=== PATIENT | female | born 1950 | race Caucasian/White ===

== ENCOUNTER 2017-05-22 15:30 | Emergency (ER) | payer MEDICARE, OTHER ==
[2017-05-22] MEDS ORDERED: Acetaminophen/HYDROcodone 325-5 MG Tab PO ONE ×2 (15:54→18:52)
[2017-05-22] MEDS ORDERED: HYDROmorphone 2 MG/ML SDV IM ONE (17:37)
[2017-05-22] MEDS ORDERED: HYDROmorphone 2 MG/ML SDV IVPUSH ONE (17:48)
[2017-05-22 20:20] VITALS: BP 168/69
--- NOTE | 2017-05-25 12:10 | CR ---
INDICATION: Inversion sprain, but only pain left forefoot. Left 2nd, 3rd, and 4th metatarsal pain. LEFT FOOT: Three views of the left foot revealed comminuted fractures of the distal shaft extending into the metaphysis of the 2nd metatarsal and 3rd metatarsal with a more distal fracture at the 4th metatarsal involving the entire distal metaphysis of the 4th metatarsal. Medial angulation is most severe at the 4th metatarsal, but is present to a mild degree at the 3rd metatarsal. No significant angulation is seen at the 2nd metatarsal. Offset of the distal fracture fragments is noted at all fracture sites, approximately 2 mm at the 2nd, 1-2 mm at the 3rd, and 3 mm lateral offset at the 4th fracture site. Plantar and posterior calcaneal spurs are also noted. IMPRESSION: Fractures with deformity at the 2nd through 4th metatarsals. MTDD
--- NOTE | 2017-05-26 11:45 | ER ---
DATE SEEN: 05/22/2017 HISTORY OF PRESENT ILLNESS: The patient was stepping off a bleacher, at an athletic event and turned her left ankle, has moderate pain in left forefoot. She has marked pain with attempt to walk on it. There is marked swelling. PAST MEDICAL HISTORY: Depression, mild dementia, hypertension, elevated cholesterol, hysterectomy, and osteopenia. Previous documented bone density DEXA scan on October 2016 demonstrated T-scores of -1.1 and -2.2 on several bone evaluations. PREVIOUS SURGERY: Left knee surgery. REVIEW OF SYSTEMS: HEENT: Negative. CARDIORESPIRATORY: Negative. GASTROINTESTINAL: No GI bleed, blood in the stool, black tarry stool, or change of bowels. GENITOURINARY: Negative. MUSCULOSKELETAL: Decreased strength in right leg. Documented osteopenia, October 2016 DEXA scan bone density testing. The patient currently on vitamin D and calcium. PHYSICAL EXAMINATION: VITAL SIGNS: Blood pressure 165/66, heart rate 68, respirations 18, oxygen saturation 98%. GENERAL: Alert woman, in mild discomfort. HEENT: PERRLA intact. Pharynx without abnormality. LUNGS: Clear to auscultation without wheezes, rales, rhonchi. HEART: S1, S2. No murmur. Regular rate and rhythm. ABDOMEN: Soft. No guarding. No abdominal discomfort. EXTREMITIES: Left knee old previous scar healed. Right knee without abnormality No effusion on palpation; femoral popliteal and dorsalis pedis intact bilaterally. No clubbing of the toes. Right ankle had mild tenderness on the lateral calcaneal tibial ligaments. Right metatarsals 2, 3, 4 are exquisitely tender to palpation. Moderate swelling to the dorsum of the foot. Plantar surface less swelling. Sensation intact. Capillary refill of the toes is intact. DIAGNOSTIC STUDIES: X-ray reveals comminuted 2, 3, 4 right distal metatarsal fractures, minimally displaced. ASSESSMENT: Right 2, 3, 4 metatarsal comminuted fracture. Status discussed with Dr. Lorenzo. It took some time (1 to 1 1/2 hours) to get a hold of Dr. Lorenzo because he was in surgery, but eventually he called just as the patient was about to leave. The patient was informed that she could wear a stiff shoe or use a splint. By the time Dr. Lorenzo had called, the patient had a short leg splint placed and was put on nonweightbearing with crutches. OTHER DIAGNOSIS: 1. Depression. 2. Dementia. 3. Hypertension. 4. Dyslipidemia. 5. Hysterectomy. 6. Left total knee arthroplasty. 7. Osteopenia, bone density in the -1.1 to -2.4. PLAN: Follow up with Dr. Lorenzo next week. Elevate, nonweightbearing, crutches, and Percocet for pain. /[id number] STAN/WILFREDOL
--- NOTE | 2017-07-16 11:55 | ER ---
DATE SEEN: 05/22/2017 An Ortho-Glass short leg splint was fabricated. /[id number] STAN/DENICE
== END 2017-05-22 19:00 | disposition home or self-care (01) ==
LOC: FB.ED 15:30
DX: S92.322A Displaced fracture of second metatarsal bone, left foot, initial encounter for closed fracture (principal); S92.331A Displaced fracture of third metatarsal bone, right foot, initial encounter for closed fracture; S92.341A Displaced fracture of fourth metatarsal bone, right foot, initial encounter for closed fracture; I10 Essential (primary) hypertension; M85.80 Other specified disorders of bone density and structure, unspecified site; Z98.890 Other specified postprocedural states; X50.1XXA Overexertion from prolonged static or awkward postures, initial encounter
CPT/HCPCS: 73630; 96372; 99284; A9270; J1170

== ENCOUNTER 2022-04-10 05:25 | Observation (INO) | payer MEDICARE, OTHER ==
[2022-04-10] MEDS ORDERED: Sodium Chloride 0.9% 1,000 ML IV ONE (06:25)
[2022-04-10] MEDS ORDERED: Iopamidol 755 Mg/ML 75 ML Bottle IV ONE (06:53)
[2022-04-10 07:06] LABS: CORONAVIRUS COVID-19 NAA NEGATIVE (NEGATIVE)
[2022-04-10] MEDS ORDERED: Albuterol/Ipratropium 3.0-0.5 MG/3 ML Neb Soln NEB ONE (08:06)
[2022-04-10] MEDS ORDERED: methylPREDNISolone Sodium Succinate 125 MG/2 ML SDV IVPUSH ONE (09:01)
[2022-04-10] MEDS ORDERED: Azithromycin 500 MG in Sodium Chloride 0.9% 250 ML IV ONE (09:03)
[2022-04-10] MEDS ORDERED: cefTRIAXone 1 GM Vial IVPUSH ONE (09:04)
[2022-04-10] MEDS: Sodium Chloride 0.9% 10 ML Syringe FLUSH PRN ×2 (10:50→14:22)
[2022-04-10] MEDS ORDERED: Albuterol/Ipratropium 3.0-0.5 MG/3 ML Neb Soln NEB PRN (11:00)
[2022-04-10] MEDS ORDERED: Codeine/guaiFENesin 10-100 MG/5 ML Syrup 5 ML Cup PO PRN (11:07)
[2022-04-10] MEDS ORDERED: Tiotropium BR/Olodaterol HCL 4 GM Inhalation Spray 2.5mcg/1 dose; 10 doses INH SCH (11:15)
[2022-04-10] MEDS ORDERED: Doxycycline 100 MG in Sodium Chloride 0.9% 100 ML IV SCH ×2 (12:00→21:00)
[2022-04-10] MEDS: Albuterol/Ipratropium 3.0-0.5 MG/3 ML Neb Soln INH SCH ×3 (12:15→21:03)
[2022-04-10] MEDS: Acetaminophen 325 MG Tab PO PRN ×2 (13:29→22:48)
[2022-04-10] MEDS ORDERED: Donepezil 10 MG Tab PO SCH (21:00)
[2022-04-10] MEDS ORDERED: Donepezil 10 MG Tab *PTOM PO SCH (21:00)
[2022-04-10] MEDS ORDERED: traZODone 50 MG Tab *PTOM PO SCH (21:00)
[2022-04-10] MEDS ORDERED: Simvastatin 20 MG Tab *PTOM PO SCH (21:00)
[2022-04-10] MEDS ORDERED: LISINOPRIL PO SCH (21:00)
[2022-04-10] MEDS ORDERED: Levothyroxine 25 MCG Tab *PTOM PO SCH (21:00)
[2022-04-10] MEDS ORDERED: HYDROCHLOROTHIAZIDE PO SCH (21:00)
[2022-04-10] MEDS: Doxycycline 100 MG Tab PO SCH (21:02)
[2022-04-10] MEDS ORDERED: Melatonin 3 MG Tab PO PRN (22:40)
[2022-04-11] MEDS: Albuterol/Ipratropium 3.0-0.5 MG/3 ML Neb Soln INH SCH ×2 (07:26→12:33)
[2022-04-11] MEDS: Doxycycline 100 MG Tab PO SCH (08:54)
[2022-04-11] MEDS ORDERED: methylPREDNISolone Sodium Succinate 125 MG/2 ML SDV IVPUSH SCH (09:00)
[2022-04-11] MEDS: Sodium Chloride 0.9% 10 ML Syringe FLUSH PRN (09:12)
[2022-04-11] MEDS ORDERED: Azithromycin 500 MG in Sodium Chloride 0.9% 250 ML IV SCH (09:30)
[2022-04-11 11:40] VITALS: PULSE 66
[2022-04-11 15:03] VITALS: BP 130/55
== END 2022-04-11 14:40 | disposition home or self-care (01) ==
LOC: FB.ED 05:25 → FB.MS 09:25
PROVIDERS: ADMIT Family Medicine; ATTEND Student in an Organized Health Care Education/Training Program
DX: J44.1 Chronic obstructive pulmonary disease with (acute) exacerbation (principal); I10 Essential (primary) hypertension; E78.5 Hyperlipidemia, unspecified; F32.A Depression, unspecified; E03.9 Hypothyroidism, unspecified; F17.210 Nicotine dependence, cigarettes, uncomplicated; Z79.890 Hormone replacement therapy; Z79.899 Other long term (current) drug therapy; Z98.890 Other specified postprocedural states; Z20.822 Contact with and (suspected) exposure to COVID-19
CPT/HCPCS: 0240U; 36415; 71275; 80048; 80053; 81001; 83605; 84484; 85025; 85379; 86140; 87040; 87086; 93005; 94640; A9270; J2930; J3490; J7030; Q9967; 99285-25; J7620

== ENCOUNTER 2023-10-21 15:11 | Emergency (ER) | payer MEDICARE, OTHER ==
[2023-10-21 16:02] LABS: BASOPHILS ABSOLUTE AUTO 0.1 x10-3/uL (0.0-0.1); BASOPHILS PERCENT AUTO 0.7 % (0.2-1.5); EOSINOPHILS ABSOLUTE AUTO 0.1 x10-3/uL (0.0-0.8); EOSINOPHILS PERCENT AUTO 1.1 % (0.6-8.1); HEMATOCRIT 36.1 % (34.2-48.2); LYMPHOCYTES ABSOLUTE AUTO 1.7 x10-3/uL (1.0-4.4); LYMPHOCYTES PERCENT AUTO 20.1 % (18.4-52.1); MEAN CORPUSCULAR HEMOGLOBIN 31.2 pg (23.9-33.9); MEAN CORPUSCULAR HGB CONC 33.4 g/dL (31.9-34.8); MEAN CORPUSCULAR VOLUME 93.5 fL (76.7-100.5); MEAN PLATELET VOLUME 8.5 fL (7.1-12.4); MONOCYTES ABSOLUTE AUTO 0.5 x10-3/uL (0.3-1.0); MONOCYTES PERCENT AUTO 5.9 % (4.4-15.7); NEUTROPHILS PERCENT AUTO 72.2 % (30.8-76.2); PLATELET COUNT,PLT 257 x10(3)uL (151-488); RED BLOOD CELL COUNT 3.86 x10(6)uL (3.60-5.20); WHITE BLOOD CELL COUNT,WBC 8.4 x10-3/uL (3.0-10.3)
[2023-10-21 16:05] LABS: BLOOD UREA NITROGEN,BUN 17 mg/dL (7-18); BUN/CREATININE RATIO 21.3 (9-20); CALCIUM 9.2 mg/dL (8.6-10.2); CARBON DIOXIDE,CO2 26 mmol/L (21-32); CHLORIDE,CL 108 mmol/L (100-110); CREATININE 0.8 mg/dL (0.55-1.02); ESTIMATED GFR 78 mL/min (>60); GLUCOSE RANDOM 99 mg/dL (80-116); POTASSIUM,K 3.3 mmol/L (3.5-5.3); SODIUM,NA 143 mmol/L (135-145)
[2023-10-21 16:11] LABS: ALANINE AMINOTRANSFERASE,ALT 23 U/L (12-36); ALBUMIN 3.1 g/dL (3.2-4.6); ALKALINE PHOSPHATASE 79 IU/L (56-112); ASPARTATE AMNIOTRANSFERASE,AST 21 IU/L (5-25); BILIRUBIN TOTAL 0.3 mg/dL (0.1-1.3); PROTEIN TOTAL,TP 6.2 g/dL (6.0-8.0)
[2023-10-21 16:13] LABS: TROPONIN I 19.5 pg/mL (4.0-60.3)
[2023-10-21 16:24] LABS: C-REACTIVE PROTEIN < 0.50 mg/dL (<0.50)
[2023-10-21] MEDS ORDERED: Magnesium Oxide 400 MG Tab PO ONE (17:16)
[2023-10-21] MEDS ORDERED: Ketorolac 30 MG/ML SDV IM ONE (17:16)
[2023-10-21] MEDS ORDERED: Potassium Chloride 20 MEQ Tab.ER PO ONE (17:16)
[2023-10-21] MEDS ORDERED: amLODIPine 5 MG Tab PO ONE (17:19)
[2023-10-21] MEDS ORDERED: cloNIDine 0.1 MG Tab PO ONE (17:19)
[2023-10-21 17:39] LABS: INFLUENZA A NAA NEGATIVE (NEGATIVE); INFLUENZA B NAA NEGATIVE (NEGATIVE); RESPIRATORY SYNCYTIAL VIR NAA NEGATIVE (NEGATIVE)
[2023-10-21 17:41] LABS: CORONAVIRUS COVID-19 NAA NEGATIVE (NEGATIVE)
[2023-10-21 18:32] VITALS: BP 197/80; PULSE 58
== END 2023-10-21 18:27 | disposition home or self-care (01) ==
LOC: FB.ED 15:11
DX: G44.209 Tension-type headache, unspecified, not intractable (principal); I10 Essential (primary) hypertension; E87.6 Hypokalemia; E83.42 Hypomagnesemia; E03.9 Hypothyroidism, unspecified; F17.210 Nicotine dependence, cigarettes, uncomplicated; Z90.49 Acquired absence of other specified parts of digestive tract; Z79.899 Other long term (current) drug therapy; Z20.822 Contact with and (suspected) exposure to COVID-19
CPT/HCPCS: 0241U; 36415; 80053; 83735; 84484; 85025; 86140; 93005; 96372; 99283; A9270; J1885